=== PATIENT | female | born 1965 | race Caucasian/White ===

== ENCOUNTER 2018-08-28 06:35 | Observation (INO) ==
--- NOTE | 2018-08-28 07:19 | ED ---
HPI General Chief Complaint: Shortness of Breath/Dyspnea Stated Complaint: Fatigue x 1 day,hard to breathe when laying down Time Seen by Provider: 08/28/18 06:55 Source: patient Mode of arrival: ambulatory Limitations: no limitations History of Present Illness 52-year-old female patient with history of hypertension, preeclampsia during , presents to the ER today because she states that she is having several days of feeling more weak, diarrhea, nausea, not keeping things down well, and states she has noticed some shortness of breath and dyspnea on exertion. She states that she cannot do very much. She also complains of some left-sided chest discomfort that was sharp and intermittent in nature. She states that she is not have any chest pains currently. She has been having intermittent leg swelling although she states that she has been in bed for the last few days and her legs are not swollen now. She has family history of early cardiac disease, states that her father had heart failure at the age of 39 and she is concerned that she could have some thing going on with her heart. She states that in the last year she was not compliant with her blood pressure medications, but lately she has been taking her blood pressure medications. Modifying Factors: None Associated Signs & Symptoms: General fatigue, nausea, diarrhea, dyspnea on exertion, intermittent sharp chest discomfort Risk Factors: Family history of heart disease early Related Data Home Medications Medication Instructions Recorded Confirmed alprazolam [Xanax] 0.5 mg PO BID 03/10/18 08/28/18 labetalol 100 mg PO DAILY 03/10/18 08/28/18 triamterene-hydrochlorothiazid 1 tab PO DAILY 03/10/18 08/28/18 zolpidem [Ambien] 10 mg PO HS 03/10/18 08/28/18 estradiol 1 mg PO DAILY 08/28/18 08/28/18 Allergies Allergy/AdvReac Type Severity Reaction Status Date / Time ciprofloxacin Allergy Intermediate SKIN RASH Verified 08/28/18 06:58 penicillin G Allergy Intermediate HIVES Verified 08/28/18 06:58 sulfamethoxazole Allergy Unknown Rash Verified 08/28/18 06:58 trimethoprim Allergy Unknown Rash Verified 08/28/18 06:58 Review of Systems ROS: all other systems reviewed are negative [facility] Medical History Medical History Anxiety (Acute) delivery delivered (Acute) H/O: hysterectomy (Acute) Hypertension (Acute) Insomnia (Acute) Surgical History Surgical History Hx of appendectomy (Acute) Social History Social History Substance History: No History of Abuse Smoking Status: Never smoker How Often Do You Have a Drink Containing Alcohol: Never Recent Travel in [facility] within the Last 8 Weeks: No Recent Out of Country Travel within the Last 8 Weeks: No Immunization History Tetanus Immunization: >5 Years Exam Narrative Exam Narrative: GENERAL: Well-developed middle-age female patient currently in mild distress. Awake and oriented x3. SKIN: Focused skin assessment warm/dry. HEAD: Atraumatic. Normocephalic. EYES: Pupils equal and round. No scleral icterus. No injection or drainage. ENT: No nasal bleeding or discharge. Mucous membranes pink and moist. NECK: Trachea midline. No JVD. CARDIOVASCULAR: Regular rate and rhythm. No murmur appreciated. RESPIRATORY: No accessory muscle use. Clear to auscultation. Breath sounds equal bilaterally. GASTROINTESTINAL: Abdomen soft, non-tender, nondistended. Hepatic and splenic margins not palpable. MUSCULOSKELETAL: No obvious deformities. No clubbing. No cyanosis. No edema. NEUROLOGICAL: Awake and alert. No obvious cranial nerve deficits. Motor grossly within normal limits. Normal speech. PSYCHIATRIC: Appropriate mood and affect; insight and judgment normal. Course Initial Documented Vital Signs Temperature 98.4 F 08/28/18 06:55 Pulse Rate 92 H 08/28/18 06:55 Respiratory Rate 17 08/28/18 06:55 Blood Pressure 151/90 H 08/28/18 06:55 Pulse Oximetry 99 08/28/18 06:55 Last Documented Vital Signs Temperature 98.4 F 08/28/18 06:55 Pulse Rate 77 08/28/18 07:29 Respiratory Rate 18 08/28/18 07:29 Blood Pressure 125/82 08/28/18 07:29 Pulse Oximetry 99 08/28/18 07:29 Medical Decision Making MDM Narrative Medical decision making narrative: Patient's potassium is low. Cardiac enzymes negative. Chest x-ray and d-dimer were fairly unremarkable. Vital signs are stable in the ER. She was given p.o. potassium replacement. At this point, my plan would be to admit her for further potassium replacement for further cardiac evaluation. Case is discussed with Dr. Van for admission. Medical Screen Exam Complete: Yes Emergency Medical Condition: Yes Differential Diagnosis Differential Diagnosis: Dehydration versus electrolyte abnormalities versus dysrhythmias versus ACS versus pneumonia Lab Data Lab results reviewed: Yes I reviewed the patient's lab results. Result diagrams: 08/28/18 07:10 08/28/18 07:10 Lab Results 08/28/18 08/28/18 08/28/18 Range/Units 07:10 07:10 07:10 CBC w Diff Auto diff final WBC 8.1 (4.0-11.0) th/mm3 RBC 4.64 (4.00-5.30) mil/mm3 Hgb 13.8 (11.6-15.3) gm/dL Hct 40.9 (35.0-46.0) % MCV 88.3 (80.0-100.0) fL MCH 29.7 (27.0-34.0) pg MCHC 33.6 (32.0-36.0) % RDW 12.5 (11.6-17.2) % Plt Count 304 (150-450) th/mm3 MPV 8.3 (7.0-11.0) fL Neut % (Auto) 67.5 (16.0-70.0) % Lymph % (Auto) 23.9 (9.0-44.0) % Snyder % (Auto) 6.8 (0.0-8.0) % Eos % (Auto) 1.4 (0.0-4.0) % Baso % (Auto) 0.4 (0.0-2.0) % Neut # (Auto) 5.5 (1.8-7.7) th/mm3 Lymph # (Auto) 1.9 (1.0-4.8) th/mm3 Snyder # (Auto) 0.6 (0.0-0.9) th/mm3 Eos # (Auto) 0.1 (0.0-0.4) th/mm3 Baso # (Auto) 0.0 (0.0-0.2) th/mm3 WBC Differential . Differential Comment . PT 10.0 (9.8-11.6) sec INR 1.0 Ratio APTT 25.7 (23.4-31.7) sec D-Dimer Quant (PE/DVT) 0.40 (0.00-0.50) mg/L FEU Sodium 137 (136-145) meq/L Potassium 2.7 L* (3.5-5.1) meq/L Chloride 98 (98-107) meq/L Carbon Dioxide 30.0 (21.0-32.0) meq/L Anion Gap 9 (5-15) meq/L BUN 13 (7-18) mg/dL Creatinine 0.96 (0.50-1.00) mg/dL Estimated GFR 61 L (>89) mL/min Random Glucose 108 H (74-106) mg/dL Calcium 9.0 (8.5-10.1) mg/dL Total Bilirubin 0.5 (0.2-1.0) mg/dL AST 16 (15-37) U/L ALT 17 (10-53) U/L Alkaline Phosphatase 61 (45-117) U/L Troponin I Less than 0.02 L (0.02-0.05) ng/mL B-Natriuretic Peptide (0-100) pg/mL Total Protein 8.0 (6.4-8.2) g/dL Albumin 3.9 (3.4-5.0) g/dL Lipase 275 (73-393) U/L Ur Collection Type Urine Color (Yellw/Straw) Urine Clarity (Clear) Urine pH (5.0-8.5) Ur Specific [place] (1.002-1.035) Urine Protein (Neg-Trace) mg/dL Urine Glucose (UA) (Negative) mg/dL Urine Ketones (Negative) mg/dL Urine Occult Blood (Negative) Urine Nitrate (Negative) Urine Bilirubin (Negative) Urine Urobilinogen (Less than 2) mg/dL Ur Leukocyte Esterase (Negative) Urine RBC (0-3) /hpf Urine WBC (0-5) /hpf Ur Squamous Epith Cells (0-5) /hpf Ur Transition Epith Cell (None) /hpf Amorphous Sediment (None) /hpf Urine Mucus (Occasional) /lpf Micro UA Comment Ur Microscopic Review Urine Culture Comments Urine Collection Time hours 08/28/18 08/28/18 Range/Units 07:10 07:40 CBC w Diff WBC (4.0-11.0) th/mm3 RBC (4.00-5.30) mil/mm3 Hgb (11.6-15.3) gm/dL Hct (35.0-46.0) % MCV (80.0-100.0) fL MCH (27.0-34.0) pg MCHC (32.0-36.0) % RDW (11.6-17.2) % Plt Count (150-450) th/mm3 MPV (7.0-11.0) fL Neut % (Auto) (16.0-70.0) % Lymph % (Auto) (9.0-44.0) % Snyder % (Auto) (0.0-8.0) % Eos % (Auto) (0.0-4.0) % Baso % (Auto) (0.0-2.0) % Neut # (Auto) (1.8-7.7) th/mm3 Lymph # (Auto) (1.0-4.8) th/mm3 Snyder # (Auto) (0.0-0.9) th/mm3 Eos # (Auto) (0.0-0.4) th/mm3 Baso # (Auto) (0.0-0.2) th/mm3 WBC Differential Differential Comment PT (9.8-11.6) sec INR Ratio APTT (23.4-31.7) sec D-Dimer Quant (PE/DVT) (0.00-0.50) mg/L FEU Sodium (136-145) meq/L Potassium (3.5-5.1) meq/L Chloride (98-107) meq/L Carbon Dioxide (21.0-32.0) meq/L Anion Gap (5-15) meq/L BUN (7-18) mg/dL Creatinine (0.50-1.00) mg/dL Estimated GFR (>89) mL/min Random Glucose (74-106) mg/dL Calcium (8.5-10.1) mg/dL Total Bilirubin (0.2-1.0) mg/dL AST (15-37) U/L ALT (10-53) U/L Alkaline Phosphatase (45-117) U/L Troponin I (0.02-0.05) ng/mL B-Natriuretic Peptide 5 (0-100) pg/mL Total Protein (6.4-8.2) g/dL Albumin (3.4-5.0) g/dL Lipase (73-393) U/L Ur Collection Type Clean catch Urine Color Yellow (Yellw/Straw) Urine Clarity Slightly cloudy (Clear) Urine pH 7.0 (5.0-8.5) Ur Specific [place] 1.010 (1.002-1.035) Urine Protein Negative (Neg-Trace) mg/dL Urine Glucose (UA) Negative (Negative) mg/dL Urine Ketones Negative (Negative) mg/dL Urine Occult Blood Trace (Negative) Urine Nitrate Negative (Negative) Urine Bilirubin Negative (Negative) Urine Urobilinogen 0.2 (Less than 2) mg/dL Ur Leukocyte Esterase Negative (Negative) Urine RBC 4-15 H (0-3) /hpf Urine WBC 0-5 (0-5) /hpf Ur Squamous Epith Cells Greater than 10 H (0-5) /hpf Ur Transition Epith Cell 1-5 H (None) /hpf Amorphous Sediment Few H (None) /hpf Urine Mucus Few H (Occasional) /lpf Micro UA Comment Culture not ind Ur Microscopic Review Microscopic reviewed Urine Culture Comments Culture not ind Urine Collection Time 740 hours Imaging Data Attestation: I personally reviewed and interpreted this imaging study as follows : Radiologist's impression: Chest X-Ray 08/28/18 07:17 CONCLUSION: Stable chest without evidence of acute cardiopulmonary process. ECG Data Attestation: I personally reviewed and interpreted this ECG as follows: Interpretation: EKG shows a normal sinus rhythm at a rate of 87 bpm. No signs of significant ST elevations or depressions. Discharge Plan Discharge Disposition Patient Disposition: ED Admit(ED Internal Use Only) Discharge Condition Condition: Stable Discharge Order Discharge Orders: ED Use Only Admit Order (Routine); Ordered 08/28/18 Ordered By: Marvel Smiley Discharge Details Anticipated Discharge Date: 08/28/18 Diagnosis: Chest pain, Hypokalemia Physicians Team ED Provider: Marvel Smiley Primary Care Provider: Edinson Ortez Rxs /Orders / Referrals /Forms Prescriptions: No Action triamterene-hydrochlorothiazid 37.5-25 mg Tablet 1 tab PO DAILY RF: 0 zolpidem [Ambien] 10 mg Tablet 10 mg PO HS RF: 0 labetalol 100 mg Tablet 100 mg PO DAILY RF: 0 alprazolam [Xanax] 0.5 mg Tablet 0.5 mg PO BID RF: 0 estradiol 1 mg Tablet 1 mg PO DAILY RF: 0 Discharge Interventions Interventions: Vital Signs Last Done: 08/28/18 06:58 Status ED Status: With Doctor
[2018-08-28] MEDS ORDERED: Aspirin 325 MG Tablet PO ONE (07:23)
[2018-08-28 07:37] LABS: Baso % (Auto) 0.4 % (0.0-2.0); Eos # (Auto) 0.1 th/mm3 (0.0-0.4); Eos % (Auto) 1.4 % (0.0-4.0); Hematocrit 40.9 % (35.0-46.0); Hemoglobin 13.8 gm/dL (11.6-15.3); Lymph # (Auto) 1.9 th/mm3 (1.0-4.8); Lymph % (Auto) 23.9 % (9.0-44.0); Mean Corpuscular HGB Conc 33.6 % (32.0-36.0); Mean Corpuscular Hemoglobin 29.7 pg (27.0-34.0); Mean Corpuscular Volume 88.3 fL (80.0-100.0); Mean Platelet Volume 8.3 fL (7.0-11.0); Mono # (Auto) 0.6 th/mm3 (0.0-0.9); Mono % (Auto) 6.8 % (0.0-8.0); Neut # (Auto) 5.5 th/mm3 (1.8-7.7); Neut % (Auto) 67.5 % (16.0-70.0); Platelet Count 304 th/mm3 (150-450); Red Blood Count 4.64 mil/mm3 (4.00-5.30); Red Cell Distribution Width 12.5 % (11.6-17.2); White Blood Count 8.1 th/mm3 (4.0-11.0)
--- NOTE | 2018-08-28 07:52 | XR ---
EXAM DATE: 08/28/2018 7:41 AM EST AGE/SEX: 52 years / Female INDICATIONS: Chest pains, short of breath, headache, nausea CLINICAL DATA: This is the patient's initial encounter. Patient reports that signs and symptoms have been present for 2 days and indicates a pain score of 8/10. MEDICAL/SURGICAL HISTORY: Hypertension. None. COMPARISON: [facility]PO, CHEST 1V SINGLE AP, 03/10/2018. . FINDINGS: A single AP view of the chest demonstrates the lungs to be symmetrically aerated without evidence of mass, infiltrate or effusion. The cardiomediastinal contours are unremarkable. Osseous structures a re intact. CONCLUSION: Stable chest without evidence of acute cardiopulmonary process. Electronically signed by: Romario Puri MD Board Certified Radiologist 08/28/2018 7:51 AM EST
[2018-08-28 07:54] LABS: Bilirubin,Urine Negative (Negative); Clarity,Urine Slightly Cloudy (Clear); Color,Urine Yellow (Yellw/Straw); Glucose,Urine (UA) Negative (Negative); Leukocyte Esterase,Urine Negative (Negative); Nitrite,Urine Negative (Negative); Urobilinogen,Urine 0.2 mg/dL (Less than 2)
[2018-08-28 07:55] LABS: Activated Partial Thrombo Time 25.7 sec (23.4-31.7); Alanine Aminotransferase 17 U/L (10-53); Albumin 3.9 g/dL (3.4-5.0); Alkaline Phosphatase 61 U/L (45-117); Anion Gap 9 meq/L (5-15); Aspartate Aminotransferase 16 U/L (15-37); Blood Urea Nitrogen 13 mg/dL (7-18); Chloride 98 meq/L (98-107); Glomerular Filtration Rate 61 mL/min (>89); Glucose,Random 108 mg/dL (74-106); Lipase 275 U/L (73-393); Sodium 137 meq/L (136-145)
[2018-08-28 07:57] LABS: D-Dimer 0.4 mg/L FEU (0.00-0.50)
[2018-08-28 07:58] LABS: Potassium 2.7 meq/L (3.5-5.1)
[2018-08-28] MEDS ORDERED: Potassium Chloride 25 MEQ Effervescent Tablet PO ONE (07:59)
[2018-08-28] MEDS ORDERED: Sodium Chlor 0.9% Inj 500 ML IV.SIG SCH (08:00)
[2018-08-28 08:05] LABS: Collection Time,Urine 740 hours
[2018-08-28 08:07] LABS: Amorphous Sediment,Urine Few /hpf; Mucus,Urine Few /lpf (Occasional); Squamous Epithelial Cell,Urine Greater than 10 /hpf (0-5); WBC,Urine 0-5 /hpf (0-5)
[2018-08-28] MEDS ORDERED: ALPRAZolam 0.5 MG Tablet PO ONE (11:37)
[2018-08-28] MEDS ORDERED: Loperamide 2 MG Capsule PO PRN (11:45)
[2018-08-28] MEDS ORDERED: Bisacodyl 10 MG Supp RECTAL PRN (11:46)
--- NOTE | 2018-08-28 11:53 | P.HP ---
History of Present Illness Service: CP -hospitalist Primary Care Physician: Edinson Ortez MD Chief Complaint: chest pain sob History of Present Illness: 52-year-old female patient with history of hypertension, preeclampsia during , presents to the ER today because she states that she is having several days of feeling more weak, diarrhea, nausea, not keeping things down well, and states she has noticed some shortness of breath and dyspnea on exertion. She states that she cannot do very much. She also complains of some left-sided chest discomfort that was sharp and intermittent in nature. She states that she is not have any chest pains currently. She has been having intermittent leg swelling although she states that she has been in bed for the last few days and her legs are not swollen now. She has family history of early cardiac disease, states that her father had heart failure at the age of 39 and she is concerned that she could have some thing going on with her heart. She states that in the last year she was not compliant with her blood pressure medications, but lately she has been taking her blood pressure medications. In er had some nonspecific changes on ekg otherwise negative as was lab work except for low potassium will give supplements. Does take BP meds and anxiety meds. Will admit get serial ekg enzymes and stress test. immodium for loose stools. - Diagnosis (1) Chest pain (2) Hypokalemia Review of Systems All other systems reviewed negative except as stated in HPI PMFSH - History History Provided By: Patient - Medical History Medical History: Medical History (Last Reviewed 08/28/18 @ 11:51 by Cahd Van MD) Anxiety delivery delivered H/O: hysterectomy Hypertension Insomnia - Surgical History Surgical History: Surgical History (Last Reviewed 08/28/18 @ 11:51 by Chad Van MD) Hx of appendectomy - Tobacco History Smoking Status: Never smoker - Alcohol History How Often Do You Have a Drink Containing Alcohol: Never - Substance Use History Substance History: No History of Abuse - Travel History Recent Travel in the [place] Within the Last 8 Weeks: No Recent Travel Out of the Country Within the Last 8 Weeks: No - Immunization History Tetanus Immunization: >5 Years Medications and Allergies Active Medications: Active Medications Alprazolam (Xanax) 0.5 mg PO BID EDI Alprazolam (Xanax) 0.5 mg PO ONCE ONE Stop: 08/28/18 11:38 Aspirin (Aspirin) 325 mg PO DAILY [facility] Estradiol (Estrace) 1 mg PO DAILY [facility] Labetalol HCl (Trandate) 100 mg PO DAILY [facility] Loperamide HCl (Imodium) 2 mg PO Q6H PRN PRN Reason: DIARRHEA Nitroglycerin (Nitro-Bid 2% Oint) 1 inch TOPICAL Q6HR [facility] Nitroglycerin (Nitrostat Sl) 0.4 mg SL Q5M PRN PRN Reason: CHEST PAIN Potassium Chloride (Kcl) 10 meq PO BID [facility] Sodium Chloride (Ns Flush) 2 ml IV.FLUSH UNSCH PRN PRN Reason: FLUSH AFTER USING IV ACCESS Last Admin: 08/28/18 07:43 Dose: 2 ml Triamterene/HCTZ (Maxzide 37.5 Mg-25 Mg) 1 tab PO DAILY [facility] Zolpidem Tartrate (Ambien) [address] [facility] Allergies Allergy/AdvReac Type Severity Reaction Status Date / Time ciprofloxacin Allergy Intermediate SKIN RASH Verified 08/28/18 06:58 penicillin G Allergy Intermediate HIVES Verified 08/28/18 06:58 sulfamethoxazole Allergy Unknown Rash Verified 08/28/18 06:58 trimethoprim Allergy Unknown Rash Verified 08/28/18 06:58 Home Medications Medication Instructions Recorded Confirmed Type alprazolam [Xanax] 0.5 mg PO BID 03/10/18 08/28/18 History labetalol 100 mg PO DAILY 03/10/18 08/28/18 History triamterene-hydrochlorothiazid 1 tab PO DAILY 03/10/18 08/28/18 History zolpidem [Ambien] 10 mg PO HS 03/10/18 08/28/18 History estradiol 1 mg PO DAILY 08/28/18 08/28/18 History Exam Vital signs: Vital Signs 08/28/18 06:55 08/28/18 06:58 08/28/18 07:21 Temperature 98.4 F Pulse Rate 92 H Respiratory Rate 17 Blood Pressure 151/90 H Pulse Oximetry 99 99 99 08/28/18 07:29 08/28/18 08:45 08/28/18 09:45 Temperature Pulse Rate 77 78 82 Respiratory Rate 18 16 16 Blood Pressure 125/82 112/77 113/67 Pulse Oximetry 99 100 100 Intake & Output 08/27/18 08/28/18 08/28/18 18:59 06:59 18:59 Intake Total 500 / 500 Balance 500 / 500 Weight 68.18 kg Intake: IV 500 / 500 NS Inj 500 ML @ 1000 mls/hr IV. 500 / 500 SIG BOLUS EDI Rx#:[id number] Narrative: GENERAL: SKIN: Warm and dry. HEAD: Normocephalic. EYES: No scleral icterus. No injection or drainage. NECK: Supple, trachea midline. No JVD or lymphadenopathy. CARDIOVASCULAR: Regular rate and rhythm without murmurs, gallops, or rubs. RESPIRATORY: Breath sounds equal bilaterally. No accessory muscle use. GASTROINTESTINAL: Abdomen soft, non-tender, nondistended. MUSCULOSKELETAL: No cyanosis, or edema. BACK: Nontender without obvious deformity. No CVA tenderness. Results - Labs CBC & Chem 7: 08/28/18 07:10 08/28/18 07:10 Labs: Laboratory Results - last 24 hr 08/28/18 08/28/18 08/28/18 07:10 07:10 07:10 CBC w Diff Auto diff final WBC 8.1 RBC 4.64 Hgb 13.8 Hct 40.9 MCV 88.3 MCH 29.7 MCHC 33.6 RDW 12.5 Plt Count 304 MPV 8.3 Neut % (Auto) 67.5 Lymph % (Auto) 23.9 [place] % (Auto) 6.8 Eos % (Auto) 1.4 Baso % (Auto) 0.4 Neut # (Auto) 5.5 Lymph # (Auto) 1.9 [place] # (Auto) 0.6 Eos # (Auto) 0.1 Baso # (Auto) 0.0 WBC Differential . Differential Comment . PT 10.0 INR 1.0 APTT 25.7 D-Dimer Quant (PE/DVT) 0.40 Sodium 137 Potassium 2.7 L* Chloride 98 Carbon Dioxide 30.0 Anion Gap 9 BUN 13 Creatinine 0.96 Estimated GFR 61 L Random Glucose 108 H Calcium 9.0 Total Bilirubin 0.5 AST 16 ALT 17 Alkaline Phosphatase 61 Troponin I Less than 0.02 L B-Natriuretic Peptide Total Protein 8.0 Albumin 3.9 Lipase 275 Ur Collection Type Urine Color Urine Clarity Urine pH Ur Specific [place] Urine Protein Urine Glucose (UA) Urine Ketones Urine Occult Blood Urine Nitrate Urine Bilirubin Urine Urobilinogen Ur Leukocyte Esterase Urine RBC Urine WBC Ur Squamous Epith Cells Ur Transition Epith Cell Amorphous Sediment Urine Mucus Micro UA Comment Ur Microscopic Review Urine Culture Comments Urine Collection Time 08/28/18 08/28/18 07:10 07:40 CBC w Diff WBC RBC Hgb Hct MCV MCH MCHC RDW Plt Count MPV Neut % (Auto) Lymph % (Auto) [place] % (Auto) Eos % (Auto) Baso % (Auto) Neut # (Auto) Lymph # (Auto) [place] # (Auto) Eos # (Auto) Baso # (Auto) WBC Differential Differential Comment PT INR APTT D-Dimer Quant (PE/DVT) Sodium Potassium Chloride Carbon Dioxide Anion Gap BUN Creatinine Estimated GFR Random Glucose Calcium Total Bilirubin AST ALT Alkaline Phosphatase Troponin I B-Natriuretic Peptide 5 Total Protein Albumin Lipase Ur Collection Type Clean catch Urine Color Yellow Urine Clarity Slightly cloudy Urine pH 7.0 Ur Specific [place] 1.010 Urine Protein Negative Urine Glucose (UA) Negative Urine Ketones Negative Urine Occult Blood Trace Urine Nitrate Negative Urine Bilirubin Negative Urine Urobilinogen 0.2 Ur Leukocyte Esterase Negative Urine RBC 4-15 H Urine WBC 0-5 Ur Squamous Epith Cells Greater than 10 H Ur Transition Epith Cell 1-5 H Amorphous Sediment Few H Urine Mucus Few H Micro UA Comment Culture not ind Ur Microscopic Review Microscopic reviewed Urine Culture Comments Culture not ind Urine Collection Time 740 - Imaging Impressions Chest X-Ray 08/28/18 07:17 CONCLUSION: Stable chest without evidence of acute cardiopulmonary process. Caprini VTE Risk Assessment Caprini VTE Risk Assessment: Moderate/High Risk (score >= 2) Caprini Risk Assessment Model: Point Value = 1 Point Value = 2 Point Value = 3 Point Value = 5 Age 41-60 Minor surgery BMI > 25 kg/m2 Swollen legs Varicose veins or History of unexplained or recurrent spontaneous Oral contraceptives or hormone replacement Sepsis (< 1 month) Serious lung disease, including pneumonia (< 1 month) Abnormal pulmonary function Acute myocardial infarction Congestive heart failure (< 1 month) History of inflammatory bowel disease Medical patient at bed rest Age 61-74 Arthroscopic surgery Major open surgery (> 45 min) Laparoscopic surgery (> 45 min) Malignancy Confined to bed (> 72 hours) Immobilizing plaster cast Central venous access Age >= 75 History of VTE Family history of VTE Factor V Leiden Prothrombin [id number] Lupus anticoagulant Anticardiolipin antibodies Elevated serum homocysteine Heparin-induced thrombocytopenia Other congenital or acquired thrombophilia Stroke (< 1 month) Elective arthroplasty Hip, pelvis, or leg fracture Acute spinal cord injury (< 1 month) Prophylaxis Regimen: Total Risk Factor Score Risk Level Prophylaxis Regimen 0-1 Low Early ambulation 2 Moderate Order ONE of the following: *Sequential Compression Device (SCD) *Heparin 5000 units SQ BID 3-4 Higher Order ONE of the following medications: *Heparin 5000 units SQ TID *Enoxaparin/Lovenox 40 mg SQ daily (WT < 150 kg, CrCl > 30 mL/min) *Enoxaparin/Lovenox 30 mg SQ daily (WT < 150 kg, CrCl > 10-29 mL/min) *Enoxaparin/Lovenox 30 mg SQ BID (WT < 150 kg, CrCl > 30 mL/min) AND/OR *Sequential Compression Device (SCD) 5 or more Highest Order ONE of the following medications: *Heparin 5000 units SQ TID (Preferred with Epidurals) *Enoxaparin/Lovenox 40 mg SQ daily (WT < 150 kg, CrCl > 30 mL/min) *Enoxaparin/Lovenox 30 mg SQ daily (WT < 150 kg, CrCl > 10-29 mL/min) *Enoxaparin/Lovenox 30 mg SQ BID (WT < 150 kg, CrCl > 30 mL/min) AND *Sequential Compression Device (SCD) Assessment and Plan - Assessment (1) Chest pain Code(s): R07.9 - Chest pain, unspecified Status: Acute Plan: admit ntg prn enzymes and ekg stress test (2) Hypokalemia Code(s): E87.6 - Hypokalemia Status: Acute Plan: give potassium and follow up labs - Plan as above patient with anxiety-continue xanax Code Status: full Discussed Condition With: patient
[2018-08-28] MEDS: Acetaminophen 325 MG Tablet PO PRN (18:04)
--- NOTE | 2018-08-28 20:42 | ECG ---
Date Performed: 08/28/2018 Time Performed: 17:31:53 PTAGE: 52 years EKG: Sinus rhythm MINIMAL ST DEPRESSION BORDERLINE ECG PREVIOUS TRACING : 08/28/2018 06.46 No signficant change from previous tracing noted. DOCTOR: Jaun Jordan Interpretating Date/Time 08/28/2018 20:41:09
[2018-08-28] MEDS: Senna/Docusate Sodium 8.6/50 MG Tablet PO SCH (20:51)
[2018-08-28] MEDS: ALPRAZolam 0.5 MG Tablet PO SCH (20:51)
--- NOTE | 2018-08-28 23:34 | ECG ---
Date Performed: 08/28/2018 Time Performed: 06:46:19 PTAGE: 52 years EKG: Sinus rhythm MODERATE ST DEPRESSION ABNORMAL ECG PREVIOUS TRACING : 03/10/2018 18.54 Since the previous tracing, no significant change noted DOCTOR: Colton Colmenares Interpretating Date/Time 08/28/2018 23:33:01
[2018-08-29 00:24] LABS: Magnesium 1.8 mg/dL (1.5-2.5)
--- NOTE | 2018-08-29 06:31 | ECG ---
Date Performed: 08/28/2018 Time Performed: 23:45:06 PTAGE: 52 years EKG: Sinus rhythm NORMAL ECG PREVIOUS TRACING : 08/28/2018 17.31 No change from previous tracing noted. DOCTOR: Jaun Jordan Interpretating Date/Time 08/29/2018 06:30:33
[2018-08-29] MEDS: ALPRAZolam 0.5 MG Tablet PO SCH (08:13)
[2018-08-29] MEDS: Senna/Docusate Sodium 8.6/50 MG Tablet PO SCH (08:20)
[2018-08-29] MEDS: Acetaminophen 325 MG Tablet PO PRN (08:22)
[2018-08-29] MEDS ORDERED: Regadenoson Inj 0.4 MG/5 ML Syringe IV.PUSH ONE (08:49)
[2018-08-29] MEDS ORDERED: Triamterene/HCTZ 37.5 MG/25 MG Tablet PO SCH (09:00)
[2018-08-29] MEDS ORDERED: Labetalol 100 MG Tablet PO SCH (09:00)
[2018-08-29] MEDS ORDERED: Estradiol 1 MG Tablet PO SCH (09:00)
[2018-08-29 09:22] VITALS: PULSE 68
[2018-08-29 09:46] VITALS: BP 128/67; RESP 21; TEMP 97.8; O2SAT 97
--- NOTE | 2018-08-29 10:06 | NM ---
EXAM DATE: 08/29/2018 9:52 AM EST AGE/SEX: 52 years / Female INDICATIONS:Angina. . Left sided chest discomfort. CLINICAL DATA: This is the patient's initial encounter. Patient reports that signs and symptoms have been present for 1 day and indicates a pain score of 2/10. MEDICAL/SURGICAL HISTORY: Hypertension. Anxiety. section. Hysterectomy. Appendectom y. COMPARISON: No prior exams available for comparison. DOSE: 8.7 mCi Tc 99m Myoview at rest 26.2 mCi [id number] at stress 0.4 mg Lexiscan STRESS SYMPTOMS: Short of breath, abdominal cramping, lightheaded. EJECTION FRACTION: >70 % TECHNIQUE: The patient underwent pharmacologic stress with infusion of prescribed dose. Continuous ECG tracing was monitored during stress. Gated SPECT imaging was performed after stress and conventi onal SPECT imaging was performed at rest. The examination was performed on a SPECT/CT scanner, both attenuation and non-corrected datasets were reviewed. FINDINGS: Distribution: The maximum perfused segment at stress is in the lateral wall. Perfusion Study: The pattern of perfusion at stress is within normal limits. Gated Study: There are intact wall motion and wall thickening without hypokinetic or dyskinetic segm ents. The ejection fraction is calculated at >70%. RISK CATEGORY: Low (<1% Annual Mortality Rate) CONCLUSION: 1. Negative examination. 2. No evidence of fixed or reversible perfusion abnormalities. 3. Normal wall motion and ejection fraction. Electronically signed by: Romairo Puri MD Board Certified Radiologist 08/29/2018 10:05 AM EST
--- NOTE | 2018-08-29 10:39 | P.DS ---
Date of admission: 08/28/18 08:50 Primary care physician: Edinson Ortez MD Attending physician on discharge: Chad Van Anticipated date of discharge: 08/29/18 Brief History from admission: 52-year-old female patient with history of hypertension, preeclampsia during , presents to the ER today because she states that she is having several days of feeling more weak, diarrhea, nausea, not keeping things down well, and states she has noticed some shortness of breath and dyspnea on exertion. She states that she cannot do very much. She also complains of some left-sided chest discomfort that was sharp and intermittent in nature. She states that she is not have any chest pains currently. She has been having intermittent leg swelling although she states that she has been in bed for the last few days and her legs are not swollen now. She has family history of early cardiac disease, states that her father had heart failure at the age of 39 and she is concerned that she could have some thing going on with her heart. She states that in the last year she was not compliant with her blood pressure medications, but lately she has been taking her blood pressure medications. In er had some nonspecific changes on ekg otherwise negative as was lab work except for low potassium will give supplements. Does take BP meds and anxiety meds. Will admit get serial ekg enzymes and stress test. immodium for loose stools. Patient update on day of discharge: patient doing well no symptoms DS: Diagnosis - Discharge Diagnosis (1) Chest pain Status: Acute (2) Hypokalemia Status: Acute DS: Summary Hospital Course: Patient admitted no further chest symptoms ,did have low potassium given po potassium level to follow up as outpatient will start po potassium 10 daily also did really well with xanax will continue as necessary. Medication called in to pharmacy for patient. Patient enzymes all normal and ekg no acute changes and nuclear stress test negative. Discharge today. Most likely viral gastroenteritis anxiety ,low potassium . - Time Spent with Patient Total time spent providing and/or coordinating discharge services: Greater than 30 minutes - Quality: VTE Deep Vein Thrombosis/Pulmonary Embolism Present on Admission: No Exam Vital signs: Vital Signs 08/28/18 12:00 08/28/18 12:14 08/28/18 16:00 Temperature 96.4 F L 97.4 F L Pulse Rate 79 77 86 Respiratory Rate 18 18 Blood Pressure 120/73 131/73 Pulse Oximetry 98 100 08/28/18 16:12 08/28/18 20:00 08/29/18 00:00 Temperature 98.5 F 97.8 F Pulse Rate 82 80 79 Respiratory Rate 18 18 Blood Pressure 124/70 106/57 L Pulse Oximetry 96 95 08/29/18 04:00 08/29/18 08:00 08/29/18 08:10 Temperature 98.5 F 97.8 F Pulse Rate 80 82 68 Respiratory Rate 18 21 Blood Pressure 109/64 128/67 Pulse Oximetry 96 97 Intake & Output 08/28/18 08/29/18 08/29/18 18:59 06:59 18:59 Intake Total 1460 / 1460 120 / 120 240 / 240 Output Total 550 / 550 200 / 200 Balance 1460 / 1460 -430 / -430 40 / 40 Weight 73.3 kg 73.2 kg Intake: IV 500 / 500 NS Inj 500 ML @ 1000 mls/hr IV. 500 / 500 SIG BOLUS EDI Rx#:[id number] Oral 960 / 960 120 / 120 240 / 240 Output: Urine 550 / 550 200 / 200 Other: # Voids 5 Date of Last Bowel Movement 08/28/18 # Bowel Movements 0 Weight On Admission 73.3 kg Narrative: GENERAL: SKIN: Warm and dry. HEAD: Normocephalic. EYES: No scleral icterus. No injection or drainage. NECK: Supple, trachea midline. No JVD or lymphadenopathy. CARDIOVASCULAR: Regular rate and rhythm without murmurs, gallops, or rubs. RESPIRATORY: Breath sounds equal bilaterally. No accessory muscle use. GASTROINTESTINAL: Abdomen soft, non-tender, nondistended. MUSCULOSKELETAL: No cyanosis, or edema. BACK: Nontender without obvious deformity. No CVA tenderness. Results Procedures completed during hospitalization: stress test Completed studies during hospitalization: stress test Labs on day of discharge: Labs from last 24 hours 08/28/18 08/28/18 08/28/18 23:55 17:37 12:26 Magnesium 1.8 Troponin I Less than 0.02 L Less than 0.02 L Less than 0.02 L - Impressions ITS Impressions Chest X-Ray 08/28/18 07:17 CONCLUSION: Stable chest without evidence of acute cardiopulmonary process. Myocardial Perfusion Scan Nuc Med 08/29/18 00:00 CONCLUSION: 1. Negative examination. 2. No evidence of fixed or reversible perfusion abnormalities. 3. Normal wall motion and ejection fraction. Discharge Plan - Discharge Disposition Patient Disposition: 01 Discharge Home - Discharge Condition Condition: Stable - Discharge Order Discharge Orders: Discharge Order (Routine); Ordered 08/29/18 Ordered By: Chad Van - Discharge Details Anticipated Discharge Date: 08/28/18 - Physicians Team Primary Care Provider: Edinson Ortez Attending Provider: Chad Van
[2018-08-29] MEDS ORDERED: Aspirin 325 MG Tablet PO SCH (12:00)
== END 2018-08-29 11:13 | disposition home or self-care (01) ==
LOC: PHED 06:35 → PHEDA 06:35 → PH3 10:22
PROVIDERS: ADMIT Internal Medicine; ATTEND Internal Medicine
CPT/HCPCS: 71010; 71045; 78452; 80053; 81001; 83520; 83690; 83735; 83880; 84132; 84484; 85025; 85379; 85610; 85730; 90761; 90774; 93005; 93017; 96361; 96374; 96376; 99285; A9502; C8952; G0378; J2405; J2785; J7040